=== PATIENT | male | born 1960 | race Caucasian/White ===

== ENCOUNTER 2018-02-25 12:01 | Inpatient (IN) ==
[2018-02-25] MEDS ORDERED: ENOXAPARIN 120 MG/0.8 ML SYRINGE SUBCUT ONE (12:18)
[2018-02-25] MEDS ORDERED: ASPIRIN 325 MG TABLET ONE (12:19)
[2018-02-25] MEDS ORDERED: MORPHINE 4 MG/1 ML VIAL ONE (12:19)
[2018-02-25] MEDS ORDERED: MIDAZOLAM 2 MG/2 ML VIAL ONE (12:21)
[2018-02-25] MEDS ORDERED: fentaNYL 100 MCG/2 ML VIAL ONE (12:21)
[2018-02-25] MEDS ORDERED: ONDANSETRON 4 MG/2 ML VIAL ONE (12:21)
[2018-02-25] MEDS ORDERED: ONDANSETRON 4 MG/2 ML VIAL IV STA (12:23)
[2018-02-25] MEDS ORDERED: ENOXAPARIN 100 MG/ML SYRINGE SUBCUT STA (12:23)
[2018-02-25] MEDS ORDERED: ASPIRIN 325 MG TABLET PO STA (12:23)
[2018-02-25] MEDS ORDERED: MORPHINE 4 MG/1 ML VIAL IV STA ×2 (12:23→12:27)
[2018-02-25] MEDS ORDERED: NITROGLYCERIN SL 0.4 MG TABLET SL PRN (12:23)
[2018-02-25 12:33] LABS: Basophils # 0.1 10*3/uL (0.0-0.2); Basophils % 0.5 % (0.0-0.8); Eosinophils # 0.2 10*3/uL (0.0-0.87); Eosinophils % 1.9 % (0.00-10.9); Hematocrit 47.5 VOL% (42.0-52.0); Immature Granulocytes % 0.6 %; Immature Granulocytes Absolute 0.07 #; Lymphocytes % 33.6 % (21.2-54.2); Mean Corpuscular HGB Conc 33.7 GM/DL (32-36); Mean Corpuscular Hemoglobin 30 PG (27-34); Mean Corpuscular Volume 89.6 FL (87-102); Mean Platelet Volume 10.6 FL (9.6-12.0); Monocytes % 8.2 % (1.7-12.7); Neutrophils # 6.5 10*3/uL (1.4-7.4); Neutrophils % 55.2 % (38.7-73.9); Platelet Count 236 T/CUMM (130-400); White Blood Count 11.8 T/CUMM (4-12)
[2018-02-25] MEDS ORDERED: NITROGLYCERIN SL 0.4 MG TABLET SL ONE ×2 (12:37→12:41)
[2018-02-25 12:45] LABS: Partial Thromboplastin Time 24.1 SECS (0-40)
[2018-02-25 12:56] LABS: Albumin 3.9 G/DL (3.4-5.0); Bilirubin,Total 0.6 MG/DL (0.2-1.0); Calcium 8.7 MG/DL (8.5-10.1); Osmolality,Calculated 272.7 MOS/KG (273-304); Potassium 4.1 MMOL/L (3.5-5.1)
[2018-02-25] MEDS ORDERED: LIDOCAINE 1% 20 ML VIAL ONE (13:05)
[2018-02-25] MEDS ORDERED: TICAGRELOR 90 MG TABLET ONE (13:09)
[2018-02-25] MEDS ORDERED: ZALEPLON 5 MG CAPSULE PO PRN (13:19)
[2018-02-25] MEDS ORDERED: ALUMINUM/MAGNES/SIMETH MAX STR 30 ML UDCUP PO PRN (13:19)
[2018-02-25] MEDS ORDERED: ACETAMINOPHEN 325 MG TABLET PO PRN (13:19)
[2018-02-25] MEDS ORDERED: ONDANSETRON 4 MG/2 ML VIAL IV PRN ×2 (13:19→17:09)
[2018-02-25] MEDS ORDERED: HYDROmorphone 2 MG/1 ML VIAL IV PRN (13:19)
[2018-02-25] MEDS ORDERED: SODIUM CHLORIDE 0.9% 1,000 ML IV SCH (13:30)
[2018-02-25] MEDS ORDERED: TIROFIBAN 5,000 MCG/100 ML PREMIX IV SCH (13:30)
[2018-02-25] MEDS ORDERED: ONDANSETRON 4 MG/2 ML VIAL IV SCH (17:08)
[2018-02-25] MEDS: TICAGRELOR 90 MG TABLET PO SCH (20:56)
[2018-02-25] MEDS: ROSUVASTATIN 20 MG TABLET PO SCH (20:56)
[2018-02-25] MEDS: METOPROLOL TARTRATE 25 MG TABLET PO SCH (20:56)
[2018-02-25] MEDS ORDERED: PROMETHAZINE 25 MG/1 ML VIAL IM PRN (21:20)
[2018-02-26 06:14] LABS: Basophils % 0.3 % (0.0-0.8); Eosinophils # 0.1 10*3/uL (0.0-0.87); Eosinophils % 0.5 % (0.00-10.9); Immature Granulocytes % 0.5 %; Immature Granulocytes Absolute 0.06 #; Lymphocytes # 2.5 10*3/uL (1.4-4.0); Lymphocytes % 19.5 % (21.2-54.2); Mean Corpuscular HGB Conc 33.3 GM/DL (32-36); Mean Corpuscular Hemoglobin 30 PG (27-34); Mean Corpuscular Volume 89.5 FL (87-102); Mean Platelet Volume 10.8 FL (9.6-12.0); Monocytes % 7.9 % (1.7-12.7); Neutrophils # 9.1 10*3/uL (1.4-7.4); Neutrophils % 71.3 % (38.7-73.9); Platelet Count 203 T/CUMM (130-400); Red Blood Count 5.03 MC/CUMM (3.8-5.5); Red Cell Distribution Width 14.3 % (9.3-17.3); White Blood Count 12.8 T/CUMM (4-12)
[2018-02-26 06:44] LABS: CKMB % 12.5 %; Calcium 8.4 MG/DL (8.5-10.1); Risk Ratio 3.91; VLDL CHOLESTEROL 31.6 MG/DL
[2018-02-26] MEDS ORDERED: FUROSEMIDE 20 MG/2 ML VIAL IV ONE (06:51)
[2018-02-26] MEDS: PANTOPRAZOLE 40 MG TABLET PO SCH (08:23)
[2018-02-26] MEDS: LOSARTAN 25 MG TABLET PO SCH (08:23)
[2018-02-26] MEDS: TICAGRELOR 90 MG TABLET PO SCH ×2 (08:23→21:09)
[2018-02-26] MEDS: METOPROLOL TARTRATE 25 MG TABLET PO SCH ×2 (08:23→21:08)
[2018-02-26] MEDS: ASPIRIN EC 81 MG TABLET PO SCH (08:23)
[2018-02-26] MEDS: ROSUVASTATIN 20 MG TABLET PO SCH (21:09)
[2018-02-27 04:26] LABS: Basophils % 0.2 % (0.0-0.8); Eosinophils # 0.2 10*3/uL (0.0-0.87); Eosinophils % 1.8 % (0.00-10.9); Hematocrit 42.4 VOL% (42.0-52.0); Hemoglobin 14.3 GM/DL (14.0-18.0); Immature Granulocytes % 0.5 %; Immature Granulocytes Absolute 0.06 #; Lymphocytes # 2.9 10*3/uL (1.4-4.0); Lymphocytes % 23.9 % (21.2-54.2); Mean Corpuscular HGB Conc 33.7 GM/DL (32-36); Mean Corpuscular Hemoglobin 30 PG (27-34); Mean Corpuscular Volume 89.6 FL (87-102); Mean Platelet Volume 10.8 FL (9.6-12.0); Monocytes # 1.1 10*3/uL (0.11-0.8); Monocytes % 9.2 % (1.7-12.7); Neutrophils # 7.9 10*3/uL (1.4-7.4); Neutrophils % 64.4 % (38.7-73.9); Platelet Count 178 T/CUMM (130-400); Red Blood Count 4.73 MC/CUMM (3.8-5.5); Red Cell Distribution Width 14.3 % (9.3-17.3); White Blood Count 12.2 T/CUMM (4-12)
[2018-02-27 04:52] LABS: Calcium 8.1 MG/DL (8.5-10.1); Osmolality,Calculated 275.5 MOS/KG (273-304); Potassium 3.5 MMOL/L (3.5-5.1)
[2018-02-27] MEDS: METOPROLOL TARTRATE 25 MG TABLET PO SCH ×2 (09:20→21:09)
[2018-02-27] MEDS: ASPIRIN EC 81 MG TABLET PO SCH (09:20)
[2018-02-27] MEDS: PANTOPRAZOLE 40 MG TABLET PO SCH (09:20)
[2018-02-27] MEDS: TICAGRELOR 90 MG TABLET PO SCH ×2 (09:20→21:09)
[2018-02-27] MEDS: LOSARTAN 25 MG TABLET PO SCH (09:20)
[2018-02-27] MEDS: ROSUVASTATIN 20 MG TABLET PO SCH (21:09)
[2018-02-28 04:32] LABS: Basophils # 0.1 10*3/uL (0.0-0.2); Basophils % 0.5 % (0.0-0.8); Eosinophils # 0.3 10*3/uL (0.0-0.87); Eosinophils % 2.9 % (0.00-10.9); Hematocrit 41.9 VOL% (42.0-52.0); Hemoglobin 14.1 GM/DL (14.0-18.0); Immature Granulocytes % 0.5 %; Immature Granulocytes Absolute 0.05 #; Lymphocytes # 3.2 10*3/uL (1.4-4.0); Lymphocytes % 29.5 % (21.2-54.2); Mean Corpuscular HGB Conc 33.7 GM/DL (32-36); Mean Corpuscular Hemoglobin 30 PG (27-34); Mean Corpuscular Volume 87.8 FL (87-102); Monocytes % 9.2 % (1.7-12.7); Neutrophils # 6.2 10*3/uL (1.4-7.4); Neutrophils % 57.4 % (38.7-73.9); Platelet Count 186 T/CUMM (130-400); Red Blood Count 4.77 MC/CUMM (3.8-5.5); Red Cell Distribution Width 14.1 % (9.3-17.3); White Blood Count 10.7 T/CUMM (4-12)
[2018-02-28 04:46] LABS: Calcium 8.6 MG/DL (8.5-10.1); Osmolality,Calculated 275.5 MOS/KG (273-304); Potassium 3.7 MMOL/L (3.5-5.1)
[2018-02-28] MEDS: METOPROLOL TARTRATE 25 MG TABLET PO SCH ×2 (08:15→21:12)
[2018-02-28] MEDS: ASPIRIN EC 81 MG TABLET PO SCH (08:15)
[2018-02-28] MEDS: PANTOPRAZOLE 40 MG TABLET PO SCH (08:15)
[2018-02-28] MEDS: TICAGRELOR 90 MG TABLET PO SCH ×2 (08:15→21:10)
[2018-02-28] MEDS: LOSARTAN 25 MG TABLET PO SCH (08:37)
[2018-02-28] MEDS: ROSUVASTATIN 20 MG TABLET PO SCH (21:09)
[2018-03-01 04:59] LABS: Basophils % 0.4 % (0.0-0.8); Eosinophils # 0.3 10*3/uL (0.0-0.87); Eosinophils % 3.2 % (0.00-10.9); Hematocrit 41.6 VOL% (42.0-52.0); Hemoglobin 13.7 GM/DL (14.0-18.0); Immature Granulocytes % 0.4 %; Immature Granulocytes Absolute 0.04 #; Lymphocytes # 2.5 10*3/uL (1.4-4.0); Lymphocytes % 27.4 % (21.2-54.2); Mean Corpuscular HGB Conc 32.9 GM/DL (32-36); Mean Corpuscular Hemoglobin 30 PG (27-34); Mean Corpuscular Volume 89.7 FL (87-102); Mean Platelet Volume 11.3 FL (9.6-12.0); Monocytes # 0.8 10*3/uL (0.11-0.8); Monocytes % 8.5 % (1.7-12.7); Neutrophils # 5.5 10*3/uL (1.4-7.4); Neutrophils % 60.1 % (38.7-73.9); Platelet Count 188 T/CUMM (130-400); Red Blood Count 4.64 MC/CUMM (3.8-5.5); Red Cell Distribution Width 13.9 % (9.3-17.3); White Blood Count 9.1 T/CUMM (4-12)
[2018-03-01 05:07] LABS: Calcium 8.6 MG/DL (8.5-10.1); Osmolality,Calculated 276.5 MOS/KG (273-304); Potassium 3.7 MMOL/L (3.5-5.1)
[2018-03-01] MEDS: ASPIRIN EC 81 MG TABLET PO SCH (08:15)
[2018-03-01] MEDS: METOPROLOL TARTRATE 25 MG TABLET PO SCH (08:15)
[2018-03-01] MEDS: TICAGRELOR 90 MG TABLET PO SCH (08:15)
[2018-03-01] MEDS: PANTOPRAZOLE 40 MG TABLET PO SCH (08:15)
[2018-03-01 12:19] VITALS: BP 95/59
[2018-03-01] MEDS: LOSARTAN 25 MG TABLET PO SCH (12:23)
== END 2018-03-01 16:00 | disposition home or self-care (01) | DRG 247 ==
LOC: N.ED 12:01 → N.CL 12:33 → N.CC 12:33 → N.TELES 02-27 11:53
PROVIDERS: ADMIT Internal Medicine Cardiovascular Disease; ATTEND Internal Medicine Cardiovascular Disease
PROC: CLCCHCL (ICD-10-PCS; 2018-02-25 13:45)